=== PATIENT | male | born 1975 | race Caucasian/White ===

== ENCOUNTER 2018-09-23 21:35 | Emergency (ER) | payer BC, OTHER ==
[2018-09-23] MEDS ORDERED: Sodium Chloride 0.9% 10 ML Syringe FLUSH PRN (21:50)
[2018-09-23] MEDS ORDERED: diphenhydrAMINE 50 MG/ML SDV IVPUSH ONE (21:51)
[2018-09-23] MEDS ORDERED: Ketorolac 15 MG/ML SDV IVPUSH ONE (21:52)
[2018-09-23] MEDS ORDERED: HYDROmorphone 1 MG/ML Syringe IVPUSH ONE (22:40)
--- NOTE | 2018-09-24 08:21 | EDM.PDOC ---
ED HPI GENERAL MEDICAL PROBLEM - General Chief Complaint: Headache Stated Complaint: HEADACHE Time Seen by Provider: 09/23/18 21:40 Source of Information: Reports: Patient History Limitations: Reports: No Limitations - History of Present Illness INITIAL COMMENTS - FREE TEXT/NARRATIVE: Pt. presents to ER with severe headache. He states that the pain is located behind his L eye. He has a history of migraine headaches in the past. Denies any head trauma. He is nauseated. Denies any numbness/tingling in extremities. No issues with speech or ambulation. He states that he has not taken anything for the pain. He is not prescribed any medications for migraines and states that they are few and far between. Pt. complains of photophobia. Denies any aura. Onset Date: 09/23/18 Location: Reports: Head Quality: Reports: Sharp, Stabbing Severity: Severe Associated Symptoms: Reports: Headaches, Nausea/Vomiting. Denies: Confusion, Chest Pain, Fever/Chills, Seizure, Shortness of Breath Migraine / Left Side of Head Pain Score (Numeric/FACES): 10 - Related Data Allergies Allergy/AdvReac Type Severity Reaction Status Date / Time No Known Allergies Allergy Verified 09/23/18 21:48 Home Meds: Home Meds Lisinopril 20 mg PO DAILY 10/18/14 [History] Escitalopram Oxalate 1 tab PO DAILY 09/24/18 [History] Levothyroxine 75 mcg PO DAILY 09/24/18 [History] Losartan Potassium 1 tab PO DAILY 09/24/18 [History] Past Medical History Cardiovascular History: Reports: Hypertension Neurological History: Reports: Migraines Psychiatric History: Reports: Anxiety, Depression, Panic Attack Endocrine/Metabolic History: Reports: Hypothyroidism - Past Surgical History Musculoskeletal Surgical History: Reports: Other (See Below) Other Musculoskeletal Surgeries/Procedures:: Surgery to repair fracture of thumb. Social & Family History - Tobacco Use Smoking Status *Q: Never Smoker - Recreational Drug Use Recreational Drug Use: No ED ROS GENERAL - Review of Systems Review Of Systems: See Below Constitutional: Reports: No Symptoms HEENT: Reports: No Symptoms Respiratory: Reports: No Symptoms Cardiovascular: Reports: No Symptoms Endocrine: Reports: No Symptoms GI/Abdominal: Reports: Nausea : Reports: No Symptoms Musculoskeletal: Reports: No Symptoms Skin: Reports: No Symptoms Neurological: Reports: Dizziness, Headache. Denies: Confusion, Paresthesia, Tremors Psychiatric: Reports: No Symptoms Hematologic/Lymphatic: Reports: No Symptoms ED EXAM, GENERAL - Physical Exam Exam: See Below Exam Limited By: No Limitations General Appearance: Alert, WD/WN, No Apparent Distress Eye Exam: Bilateral Eye: EOMI, Normal Fundi, Normal Inspection, PERRL Ears: Hearing Grossly Normal Throat/Mouth: Normal Inspection, Normal Lips, Normal Teeth, Normal Gums, Normal Oropharynx, Normal Voice, No Airway Compromise Head: Atraumatic, Normocephalic Neck: Normal Inspection, Supple, Non-Tender, Full Range of Motion Respiratory/Chest: No Respiratory Distress, Lungs Clear, Normal Breath Sounds, No Accessory Muscle Use, Chest Non-Tender Cardiovascular: Normal Peripheral Pulses, Regular Rate, Rhythm, No Edema, No Gallop, No JVD, No Murmur, No Rub Peripheral Pulses: 4+: Radial (R) GI/Abdominal: Soft, Non-Tender, No Organomegaly, No Distention, No Abnormal Bruit, No Mass (Male) Exam: Deferred Rectal (Males) Exam: Deferred Back Exam: Normal Inspection, Full Range of Motion Extremities: Normal Inspection, Normal Range of Motion, Non-Tender, No Pedal Edema, Normal Capillary Refill Neurological: Alert, Oriented, CN II-XII Intact, Normal Cognition, Normal Gait, Normal Reflexes, No Motor/Sensory Deficits, Other (romberg is negative. No pronator drift. ). No: Sensory/Motor Deficit Psychiatric: Normal Affect, Normal Mood Skin Exam: Warm, Dry, Intact, Normal Color Course - Vital Signs Last Recorded V/S: Last Vital Signs Temp 35.7 C 09/23/18 21:40 Pulse 72 09/23/18 22:30 Resp 14 09/23/18 22:30 BP 132/88 09/23/18 22:30 Pulse Ox 97 09/23/18 22:30 - Orders/Labs/Meds Orders: Active Orders 24 hr Category Date Time Status Head wo Cont [CT] Stat Exams 09/23/18 21:39 Taken Peripheral IV Insertion Adult [OM.PC] Routine Oth 09/23/18 21:50 Ordered Meds: Medications Discontinued Medications Generic Name Dose Route Start Last Admin Trade Name Freq PRN Reason Stop Dose Admin Diphenhydramine HCl 50 mg 09/23/18 21:51 09/23/18 22:00 Benadryl IVPUSH 09/23/18 21:52 50 mg ONETIME ONE Administration Hydromorphone HCl 1 mg 09/23/18 22:40 09/23/18 22:49 Dilaudid IVPUSH 09/23/18 22:41 1 mg ONETIME ONE Administration Chlorpromazine HCl 25 mg/ 101 mls @ 200 mls/hr 09/23/18 21:51 09/23/18 22:00 Sodium Chloride IV 09/23/18 22:21 200 mls/hr ONETIME ONE Administration Ketorolac Tromethamine 15 mg 09/23/18 21:52 09/23/18 22:00 Toradol IVPUSH 09/23/18 21:53 15 mg ONETIME ONE Administration Sodium Chloride 10 ml 09/23/18 21:50 Saline Flush FLUSH ASDIRECTED PRN Keep Vein Open - Re-Assessments/Exams Free Text/Narrative Re-Assessment/Exam: Pt. did not tolerate the thorazine and developed what appeared to be a mild dystonic reaction that resolved when the infusion was stopped. Pt. was given diphenhydramine 50mg IV, toradol 15mg IV and dilaudid 1 mg IV. He received about 12.5 mg of thorazine. He reported complete resolution of his headache and requested discharge. Departure - Departure Time of Disposition: 23:18 Disposition: Home, Self-Care 01 Clinical Impression: Migraine - Discharge Information Instructions: Migraine Headache, [id number] Referrals: Carolina Hernandez PA-C [Primary Care Provider] - Forms: ED Department Discharge Additional Instructions: Home to rest. Return to ER if symptoms worsen again. Ibuprofen as needed for continued pain. Follow-up in clinic in 7-10 days for recheck. - My Orders Last 24 Hours: My Active Orders 09/23/18 21:39 Head wo Cont [CT] Stat 09/23/18 21:50 Peripheral IV Insertion Adult [OM.PC] Routine - Assessment/Plan Last 24 Hours: My Active Orders 09/23/18 21:39 Head wo Cont [CT] Stat 09/23/18 21:50 Peripheral IV Insertion Adult [OM.PC] Routine Plan: Home to rest. Return to ER if symptoms worsen again. Ibuprofen as needed for continued pain. Follow-up in clinic in 7-10 days for recheck.
--- NOTE | 2018-09-24 11:06 | CT ---
[id number] CT/CT Head WO IV EXAM: CT Head WO IV CLINICAL DATA: VERY SEVERE HEADACHE COMPARISON STUDY: None FINDINGS: No intracranial hemorrhage, extra-axial fluid collection, mass, or acute ischemia. No hydrocephalus. Paranasal sinuses and mastoid air cells are clear. IMPRESSION: No acute intracranial findings. Betr Rossi MD 09/24/18 1102 Thank you for allowing us to participate in the care of your patient.
== END 2018-09-23 23:18 | disposition home or self-care (01) ==
LOC: VM.ED 21:35
DX: G43.909 Migraine, unspecified, not intractable, without status migrainosus (principal); I10 Essential (primary) hypertension; E03.9 Hypothyroidism, unspecified; F41.9 Anxiety disorder, unspecified; F32.9 Major depressive disorder, single episode, unspecified; Z79.899 Other long term (current) drug therapy
CPT/HCPCS: 70450; 96374; 96375; 99284; J1170; J1200; J1885; J3230; J7050

== ENCOUNTER 2021-08-13 06:58 | Day surgery (SDC) | payer BC ==
[2021-08-13] MEDS ORDERED: Lactated Ringers 1,000 ML IV SCH (07:00)
[2021-08-13] MEDS ORDERED: Midazolam 1 MG/ML 2 ML SDV ONE (09:22)
[2021-08-13] MEDS ORDERED: Propofol 200 MG/20 ML SDV ONE (09:22)
[2021-08-13] MEDS ORDERED: fentaNYL 100 MCG/2 ML SDV ONE (09:33)
== END 2021-08-13 10:55 | disposition home or self-care (01) ==
LOC: VM.SDS 06:58
PROVIDERS: ATTEND Student in an Organized Health Care Education/Training Program
DX: Z12.11 Encounter for screening for malignant neoplasm of colon (principal); D12.4 Benign neoplasm of descending colon; L29.9 Pruritus, unspecified; I10 Essential (primary) hypertension; E66.9 Obesity, unspecified; E03.9 Hypothyroidism, unspecified; E78.1 Pure hyperglyceridemia; R73.03 Prediabetes; Z87.891 Personal history of nicotine dependence; Z79.899 Other long term (current) drug therapy; Z88.8 Allergy status to other drugs, medicaments and biological substances; Z68.36 Body mass index [BMI] 36.0-36.9, adult
CPT/HCPCS: 00812; J2250; J2704; J3010; J7120